=== PATIENT | female | born 1995 ===

== ENCOUNTER 2024-10-30 22:44 | Inpatient (IN) ==
[2024-10-30 23:26] LABS: ABS Eosinophils 0.1 10^3/uL (0.0-0.5); ABS Lymphocytes 1.4 10^3/uL (1.0-4.8); ABS Monocytes 0.9 10^3/uL (0.0-0.9); ABS Neutrophils 6.1 10^3/uL (1.5-7.6); ABS Nucleated RBC 0.01 10^3/ul; Eosinophil % 0.7 %; Hematocrit 37.1 % (35-45); Hemoglobin 12.5 g/dL (11.5-14.3); Lymphocyte % 16.9 %; Mean Corpuscular Hemoglobin 31.8 pg (27-33); Mean Corpuscular Hgb Conc 33.7 g/dL (31-36); Mean Corpuscular Volume 94.4 fL (80-97); Mean Platelet Volume 8.5 fL (7.5-11.2); Nucleated Red Blood Cells % 0.1 %/100WBC (0.0-0.8); Platelet Count 170 10^3/uL (150-450); Red Blood Count 3.93 10^6/uL (3.63-4.92); Red Cell Distribution Width 14.1 % (12-17); White Blood Count 8.5 10^3/uL (3.8-11.8)
[2024-10-30] MEDS ORDERED: Lactated Ringers 1000 ml BAG 1,000 ML IV SCH (23:45)
[2024-10-30] MEDS ORDERED: Lidocaine 1% VIAL 10 MG/ML 30 ML VIAL INJ PRN (23:52)
[2024-10-30] MEDS ORDERED: Lactated Ringers 1000 ml BAG 1,000 ML IV ONE (23:52)
[2024-10-30] MEDS ORDERED: Buffered Lidocaine 1% SYRIN 1 ml INTRADERM ONE (23:52)
[2024-10-30] MEDS ORDERED: Nalbuphine 10 MG/ML 1 ML VIAL IV PRN (23:52)
[2024-10-30] MEDS ORDERED: Prochlorperazine 5 mg/ml 2 ml VIAL (10 mg) IV PRN (23:52)
[2024-10-31] MEDS: Penicillin G Potassium IV 3,000,000 UNITS in NS 0.9% 100 ml BAG 100 ML IVPB SCH (00:39)
[2024-10-31 02:41] LABS: Urine Appearance Clear; Urine Bilirubin Negative (Negative); Urine Blood Negative (Negative); Urine Color Light-Yellow; Urine Glucose Negative (Negative); Urine Ketones Negative (Negative); Urine Nitrite Negative (Negative); Urine Protein Negative (Negative); Urine Specific Gravity 1.014 (1.002-1.030); Urine Urobilinogen Negative (Negative); Urine pH 6.5 (5.0-8.0)
[2024-10-31 02:51] LABS: Urine Benzodiazepine Screen None Detected (None Detect); Urine Cannabinoids Screen None Detected (None Detect); Urine Opiates Screen None Detected (None Detect)
[2024-10-31] MEDS: Oxytocin in NS 30,000 MILLI.UNIT/500 ML BAG IV ONE (03:30)
[2024-10-31] MEDS ORDERED: Witch Hazel PAD JAR TOPICAL PRN (03:59)
[2024-10-31] MEDS ORDERED: Dibucaine 1% OINT 28.35 GM TUBE PR PRN (03:59)
[2024-10-31] MEDS ORDERED: Glycerin ADULT 2.4 gm SUPP PR PRN (03:59)
[2024-10-31] MEDS ORDERED: Lactated Ringers 1000 ml BAG 1,000 ML IV SCH (04:00)
[2024-11-01 06:51] LABS: ABS Basophils 0.1 10^3/uL (0.0-0.1); ABS Eosinophils 0.1 10^3/uL (0.0-0.5); ABS Lymphocytes 1.8 10^3/uL (1.0-4.8); ABS Monocytes 0.9 10^3/uL (0.0-0.9); ABS Neutrophils 6.6 10^3/uL (1.5-7.6); Eosinophil % 1.2 %; Hematocrit 36.2 % (35-45); Hemoglobin 12.4 g/dL (11.5-14.3); Lymphocyte % 18.8 %; Mean Corpuscular Hemoglobin 32.5 pg (27-33); Mean Corpuscular Hgb Conc 34.1 g/dL (31-36); Mean Corpuscular Volume 95.2 fL (80-97); Mean Platelet Volume 8.4 fL (7.5-11.2); Platelet Count 146 10^3/uL (150-450); Red Blood Count 3.81 10^6/uL (3.63-4.92); Red Cell Distribution Width 14.1 % (12-17); White Blood Count 9.4 10^3/uL (3.8-11.8)
[2024-11-01 08:48] VITALS: BP 115/68
== END 2024-11-01 12:01 | disposition home or self-care (01) | DRG 560 ==
LOC: MCHOBOUT 22:44 → MCHOB 23:53
PROVIDERS: ADMIT Obstetrics & Gynecology; ATTEND Obstetrics & Gynecology